=== PATIENT | female | born 1980 | race Asian ===

== ENCOUNTER 2022-09-08 07:34 | Emergency (ER) | payer OTHER ==
[~2022-09-08] VITALS: Ht 154.9 cm; Wt 59.0 kg
[2022-09-08 07:50] VITALS: BP_SYST 130
--- NOTE | 2022-09-08 07:55 | NUR ---
Patient to ER bed 07 to gown for evaluation. Side rails up. Report given to MEGAN RIGGS.
--- NOTE | 2022-09-08 08:04 | NUR ---
Pt bib spouse from home. Chief complaint raised red bumps to inner brachial bilateral extremities and lumbar region. Pt is aaox3, afebrile, respirations even and unlabored. vss. Bed in lowest position with rails up.
--- NOTE | 2022-09-08 08:05 | NUR ---
ER at bedside examining patient.
[2022-09-08] MEDS ORDERED: DIPHENHYDRAMINE HCL 12.5 MG/5 ML UDC PO ONE (08:30)
[2022-09-08] MEDS ORDERED: FAMOTIDINE 20 MG TABLET PO ONE (08:30)
[2022-09-08] MEDS ORDERED: DIPH25CA83 PO (09:12)
--- NOTE | 2022-09-08 09:33 | NUR ---
Patient given written and verbal discharge instructions and verbalizes understanding. ER MD discussed with patient the results and treatment provided. Patient in stable condition. ID arm band removed. IV catheter removed intact and dressing applied, no active bleeding. Rx of benadryl given. Patient educated on pain management and to follow up with PMD. Opportunity for questions provided and answered. Medication side effect fact sheet provided.
[2022-09-08 09:35] VITALS: BP_SYST 111
== END 2022-09-08 09:33 | disposition home or self-care (01) ==
LOC: SED 07:34
DX: T78.40XA Allergy, unspecified, initial encounter (principal); R21 Rash and other nonspecific skin eruption; Z88.1 Allergy status to other antibiotic agents; Z79.899 Other long term (current) drug therapy; X58.XXXA Exposure to other specified factors, initial encounter
CPT/HCPCS: 99282